=== PATIENT | male | born 1935 | race Caucasian/White ===

== ENCOUNTER 2016-08-03 11:12 | Emergency (ER) | payer MEDICARE ==
[~2016-08-03 11:12] MED LIST: ALPRAZOLAM0.5 MG PO; ASPIRIN 81 LOW81 MG PO; ATORVASTATIN CA40 MG PO; AVAPRO300 MG PO; CALCITRIOL0.25 MCG PO; CALCIUM ACETAT667 MG PO; MELATONIN5 MG PO; METOPROLOL SUCC50 MG PO; OMEPRAZOLE20 MG PO; TRAMADOL HCL50 MG PO; VITAMIN B-121000 MCG PO; VITAMIN D31000 UNI2 PO
--- NOTE | 2016-08-03 13:59 | DIAGNOSTIC IMAGING REPORT ---
PROCEDURE: XR CHEST 1 VIEW INDICATION: Chest pain, initial encounter TECHNIQUE: Portable AP view 12:19 p.m. COMPARISON: Chest x-ray 10/23/2015 FINDINGS: Poor inspiration but lungs are clear. Median sternotomy and CABG. Heart size, mediastinum and pulmonary vessels are normal. Tortuous aorta. Bony thorax is unremarkable. No significant interval change. IMPRESSION: 1. No acute changes 2. CABG
--- NOTE | 2016-08-03 14:38 | ED ORDER SUMMARY ---
..... Patient: LILIA PABLO OrderSheet [facility] VisitID: [id number] [place] [address] 80y, M Registration Date/Time: 08/03/2016 ORDER SHEET Weight: 90.7 kg (stated) Allergies: No Known Drug Allergy GENERAL ORDERS: EKG - ER Stat (11:42 08/03/2016 SBalde R.N. per protocol) (Ack 11:47 Luis Fernando) (12:05 EHassan R.N.) Rapid Influenza Screen (Nasal Pharyngeal) (nasal) Urgent (11:43 08/03/2016 SBalde R.N. per protocol) (Ack 11:47 Luis Fernando) (12:05 EHassan R.N.) Chest 1V Urgent (12:13 08/03/2016 Lorena TINAJERO) (Ack 12:21 Luis Fernando) (12:28 EHassan R.N.) CBC w Diff Urgent (12:13 08/03/2016 Lorena TINAJERO) (Ack 12:21 Luis Fernando) (12:27 EHassan R.N.) CMP Urgent (12:13 08/03/2016 Lorena TINAJERO) (Ack 12:21 Luis Fernnado) (12:27 EHassan R.N.) UA-Culture if indicated Urgent (12:13 08/03/2016 Lorena TINAJERO) (Ack 12:21 Luis Fernando) (15:06 EHassan R.N.) Amylase Urgent (12:13 08/03/2016 Lorena TINAJERO) (Ack 12:21 Luis Fernando) (12:27 EHassan R.N.) Lipase Urgent (12:13 08/03/2016 Lorena TINAJERO) (Ack 12:21 Luis Fernando) (12:27 EHassan R.N.) BNP Urgent (12:13 08/03/2016 Lorena TINAJERO) (Ack 12:21 Luis Fernando) (12:27 EHassan R.N.) CPK Urgent (12:13 08/03/2016 Lorena TINAJERO) (Ack 12:21 Luis Fernando) (12:27 EHassan R.N.) Troponin-I Urgent (12:13 08/03/2016 Lorena TINAJERO) (Ack 12:21 Luis Fernando) (12:27 EHassan R.N.) PCT (Procalcitonin) Urgent (12:08/03/2016 Lorena TINAJERO) (Ack 12:21 Luis Fernando) (12:28 EHassan R.N.) Lactate, Serum Urgent (12:08/03/2016 Lorena TINAJERO) (Ack 12:[facility] (12:37 EHassan R.N.) Anatomy And Physiology Instructor (Continuous) (12:08/03/2016 Lorena TINAJERO) (12:21 MWinterer R.N.) (Ack 12:21 [facility] Oxygen (2 L/min) (NC) (12:08/03/2016 Lorena TINAJERO) (12:21 MWinterer R.N.) (Ack 12:21 [facility] Pulse oximeter (12:08/03/2016 Lorena TINAJERO) (12:21 MWinterer R.N.) (Ack 12:21 [facility]) EKG - ER Stat (12:08/03/2016 Lorena TINAJERO) (Cancelled: Duplicate Order12:21 LTapper) (Cancelled: Other12:21 MWinterer R.N.) (Ack 12:21 [facility]) MEDICATION ORDERS: IV FLUIDS: IV Saline Lock (12:08/03/2016 Lorena TINAJERO) (12:28 EHassadurga R.N.) ORDER SHEET NOTES: [Electronically signed by Jordyn Rodriguez R.N. (15:08/03/2016)] [Electronically signed by Bakari Rolon MD (10:03 08/07/2016)] [Electronically locked/signed by Jordyn Rodriguez R.N. (15:08/03/2016)]
--- NOTE | 2016-08-03 14:38 | ED ORDER SUMMARY ---
..... Patient: LILIA PABLO OrderSheet [facility] VisitID: [id number] [place] [address] 80y, M Registration Date/Time: 08/03/2016 ORDER SHEET Weight: 90.7 kg (stated) Allergies: No Known Drug Allergy GENERAL ORDERS: EKG - ER Stat (11:42 08/03/2016 SBalde R.N. per protocol) (Ack 11:47 Luis Fernando) (12:05 EHassan R.N.) Rapid Influenza Screen (Nasal Pharyngeal) (nasal) Urgent (11:43 08/03/2016 SBalde R.N. per protocol) (Ack 11:47 Luis Fernando) (12:05 EHassan R.N.) Chest 1V Urgent (12:13 08/03/2016 Lorena TINAJERO) (Ack 12:21 Luis Fernando) (12:28 EHassan R.N.) CBC w Diff Urgent (12:13 08/03/2016 Lorena TINAJERO) (Ack 12:21 Luis Fernando) (12:27 EHassan R.N.) CMP Urgent (12:13 08/03/2016 Lorena TINAJERO) (Ack 12:21 Luis Fernando) (12:27 EHassan R.N.) UA-Culture if indicated Urgent (12:13 08/03/2016 Lorena TINAJERO) (Ack 12:21 Luis Fernando) (15:06 EHassan R.N.) Amylase Urgent (12:13 08/03/2016 Lorena TINAJERO) (Ack 12:21 Luis Fernando) (12:27 EHassan R.N.) Lipase Urgent (12:13 08/03/2016 Lorena TINAJERO) (Ack 12:21 Luis Fernando) (12:27 EHassan R.N.) BNP Urgent (12:13 08/03/2016 Lorena TINAJERO) (Ack 12:21 Luis Fernando) (12:27 EHassan R.N.) CPK Urgent (12:13 08/03/2016 Lorena TINAJERO) (Ack 12:21 Luis Fernando) (12:27 EHassan R.N.) Troponin-I Urgent (12:13 08/03/2016 Lorena TINAJERO) (Ack 12:21 Luis Fernando) (12:27 EHassan R.N.) PCT (Procalcitonin) Urgent (12:08/03/2016 Lorena TINAJERO) (Ack 12:21 Luis Fernando) (12:28 EHassan R.N.) Lactate, Serum Urgent (12:08/03/2016 Lorena TINAJERO) (Ack 12:[facility] (12:37 EHassan R.N.) Region Manager (Continuous) (12:08/03/2016 Lorena TINAJERO) (12:21 MWinterer R.N.) (Ack 12:[facility] Oxygen (2 L/min) (NC) (12:08/03/2016 Lorena TINAJERO) (12:21 MWinterer R.N.) (Ack 12:[facility] Pulse oximeter (12:08/03/2016 Lorena TINAJERO) (12:21 MWinterer R.N.) (Ack 12:21 [facility]) EKG - ER Stat (12:08/03/2016 Lorena TINAJERO) (Cancelled: Duplicate Order12:21 LTapper) (Cancelled: Other12:21 MWinterer R.N.) (Ack 12:21 [facility]) MEDICATION ORDERS: IV FLUIDS: IV Saline Lock (12:08/03/2016 Lorena TINAJERO) (12:28 EHassadurga R.N.) ORDER SHEET NOTES: [Electronically signed by Jordyn Rodriguez R.N. (15:08/03/2016)] [Electronically signed by Bakari Rolon MD (10:03 08/07/2016)] [Electronically locked/signed by Jordyn Rodriguez R.N. (15:08/03/2016)]
--- NOTE | 2016-08-03 14:38 | ED NURSING NOTES ---
Clinical Report - Nurses [facility] [address] [place] [address] 08/03/2016 11:12 Patient: LILIA PABLO TRIAGE Triage time 11:30 Aug 03 2016. Acuity: LEVEL 3. Chief Complaint: BODY ACHES. Alert. No acute distress. --11:40 Meenakshi Benítez R.N. 11:29 08/03/16. BP: 151/70. HR: 54. RR: 18. O2 saturation: 100%. Temp: 97.2 F. Pain level now 0/10. --11:40 Meenakshi Benítez R.N. Weight: 90.7 kg stated. Height/Length: 71 inches Per Patient. BMI: 27.9. --11:28 Meenakshi Benítez R.N. Medications ALPRAZolam Oral 0.5 mg, as needed. Calcium Acetate Oral 667mg/0.25 calcitrol, , 1 daily, 2 three times per week. Ecotrin Oral 81 mg, daily. Metoprolol Succinate ER Oral 50 mg daily. Probiotic Daily Oral, daily. Tramadol HCL Oral 50 mg, as needed (last dose at 3pm). Vit b12 2000 mcg. Vitamin D Oral (Capsule 1000 unit) 1 capsule. --11:36 Meenakshi Benítez R.N. Lunesta Oral (Tablet 2 mg), HS. --11:36 Meenakshi Benítez R.N. Ranitidine HCl Oral 150 mg, as needed. --11:37 Meenakshi Benítez R.N. Claritin Oral 10 mg. --11:37 Meenakshi Benítez R.N. IBX Stool Softner. --11:38 Meenakshi Benítez R.N. Allergies No Known Drug Allergy. --11:36 Meenakshi Benítez R.N. History Arrived by private vehicle. Historian: patient. Accompanied by son. Primary physician (Dr. Zurita). ( Son states his dad has been sleeping alot lately, last 6 days his dad has c/o body aches, shoulder pain. Bowels are ok, urine out put, 2 liters a night per son.). Onset. (6 days). 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 PAST MEDICAL HX: Immunizations: seasonal influenza. SOCIAL HX: Heavy tobacco smoker (cigarette)- 1 pack per day. Alcohol use; consumes liquor. (2-3 drinks a noc). No drug use. No recent travel. No infectious disease exposure. No known contact with a sick individual. FALL RISK ASSESSMENT: Fall risk assessment completed. No fall risk identified. NUTRITIONAL RISK ASSESSMENT: The nutritional risk assessment revealed no deficiencies. FUNCTIONAL ASSESSMENT: Functional assessment: no impairments noted. LEARNING NEEDS ASSESSMENT: The learning needs assessment revealed no barriers. SKIN INTEGRITY ASSESSMENT: Skin integrity risk assessment completed. No skin integrity risk identified. --11:40 Meenakshi Benítez R.N. PROBLEMS: Abdominal Pain. Renal Insufficiency. Renal Failure. Heart Disease. --11:39 Meenkashi Benítez R.N. ADDITIONAL SURGERIES: AAA repair. Angioplasty of blood vessel. Coronary Artery Bypass Graft. Stents. --11:39 Meenakshi Benítez R.N. Interventions ID band on patient. To room. --11:40 Meenakshi Benítez R.N. PHYSICAL ASSESSMENT To room via wheelchair. GENERAL / NEURO / PSYCH: Alert. Oriented X 4. Appears in no acute distress. HEENT: Mucous membranes are pink. RESPIRATORY: Respirations not labored. Chest nontender. Decreased breath sounds in the bases bilaterally; decreased breath sounds in the right lung base posteriorly; decreased breath sounds in the left lung base posteriorly. CVS: Cardiac rhythm: sinus bradycardia. Capillary refill less than 2 seconds. Pulses within normal limits. GI / : Abdomen soft and nontender and normal bowel sounds. SKIN: Skin intact. Skin is warm and dry. --11:55 Jordyn Rodriguez R.N. NURSING PROGRESS NOTES 11:51 08/03/2016 Site #1 started via IV in the right forearm with an 20g angiocath; one attempt. Blood drawn: rainbow set. Labeled in the presence of the patient and sent to the lab. Saline lock flushed with 10 mL saline. --11:56 Jordyn Rodriguez R.N. Cardiac rhythm: sinus bradycardia. The initial plan of care for this patient has been created This plan of care was discussed with the patient and family. Pulse oximeter applied. Patient ID band checked for patient name, birthdate and medical record number: patient confirmed. Blood samples drawn from the right forearm by nurse per protocol ; labeled in presence of the patient and sent to lab: rainbow set. Patient gowned. Reassurance given. Patient ID band checked for patient name, birthdate and medical record number: patient confirmed. Flu swab obtained by RN via nasal swab. Labeled in the presence of the patient and sent to lab. ( Pt's son wanted us to know dad has had a lump like in his upper right epigastric area, which "hurts if I rubbed it down it feels better and goes down".). Patient identifiers checked. Call light placed in reach. Side rails up x 2. Bed placed in lowest position. Brakes of bed on. Brakes of chair on. --12:05 Jordyn Rodriguez R.N. 11:45 08/03/16. BP: 139/68 (regular adult cuff) taken on the left arm, via an automated monitor, while lying. HR: 53. RR: 12. O2 saturation: 100%. Pain level now: 0/10. --12:05 Jordyn Rodriguez R.N. EKG time: (11:40). EKG was performed by a tech and shown to the ED physician. --12:16 David Rivera Cardiac rhythm: sinus bradycardia. --12:57 Jordyn Rodriguez R.N. 12:45 08/03/16. BP: 129/61 (regular adult cuff) taken on the left arm, via an automated monitor, while lying. HR: 55 (regular and bradycardic). RR: 15. O2 saturation: 99% on room air. Pain level now: 0/10. --12:57 Jordyn Rodriguez R.N. 14:23 08/03/16. BP: 139/74. HR: 57. RR: 18. O2 saturation: 55%. --14:23 Meenakshi Benítez R.N. DISPOSITION / DISCHARGE 14:58 08/03/2016 Site #1 removed upon discharge. Catheter intact. Manual pressure and bandaid applied. --15:03 Jordyn Rodriguez R.N. Cardiac rhythm: normal sinus rhythm. Departure time: 1505 PM. Condition at departure: improved and stable. The goals identified in the patient's plan of care were met. No learning barriers present. Discharge instructions provided and reviewed with the patient and family. Reviewed warnings. Reviewed medication(s). He has no diet restrictions. Reviewed need to stop smoking. Activity restrictions (no driving and rest) reviewed. Work note given. Patient and family verbalized understanding. Written instructions provided in [place]. The patient was discharged by the physician. He was discharged home and accompanied by family. He left the Emergency Department in a wheelchair and via private vehicle. Family member driving. FALL RISK ASSESSMENT: Fall risk assessment completed. No fall risk identified. RAKESH COMA SCORE: [place] Coma Scale: 15- eyes open spontaneously (4); best verbal response- oriented x 4 (5); best motor response- obeys commands (6). --15:05 Jordyn Rodriguez R.N. 15:00 08/03/16. BP: 132/57 (regular adult cuff) taken on the left arm, via an automated monitor, while sitting. HR: 76 (regular and normal rate). RR: 15. O2 saturation: 97% on room air. Temp: 97.2 F (oral). Pain level now: 0/10. --15:05 Jordyn Rodriguez R.N. Locked/Released at 08/03/2016 15:07 by Jordyn Rodriguez R.N.
--- NOTE | 2016-08-03 14:38 | ED CLINICAL REPORT ---
Clinical Report - Physicians/Mid Levels [facility] [address] [place] [address] 08/03/2016 11:12 Patient: LILIA PABLO Time Seen: 12:13. Arrived- By private vehicle. Historian- patient and son. HISTORY OF PRESENT ILLNESS Chief Complaint: sleeping 20 plus hours each day. This started for about 4 days and is still present. It was gradual in onset and has been constant. The patient has had fatigue and hypersomnia. (the patient and his son have been concerned because he has been sleepingmost of the time over the past several days. His son says that he takes medications for anxiety and also for insomnia.). REVIEW OF SYSTEMS No chills, fever, sweats, calf pain or chest pain. No cough, difficulty breathing, pedal edema, palpitations or abdominal pain. No constipation, diarrhea, nausea, vomiting or urinary problems. All systems otherwise negative, except as recorded above. PAST HISTORY Problems: Abdominal Pain. Heart Disease. Renal Failure. Additional Surgeries: AAA repair. Angioplasty of blood vessel. Coronary Artery Bypass Graft. Stents. Medications: IBX Stool Softner. Claritin Oral 10 mg. Ranitidine HCl Oral 150 mg, as needed. Lunesta Oral (Tablet 2 mg), HS. ALPRAZolam Oral 0.5 mg, as needed. Calcium Acetate Oral 667mg/0.25 calcitrol, , 1 daily, 2 three times per week. Ecotrin Oral 81 mg, daily. Metoprolol Succinate ER Oral 50 mg daily. Probiotic Daily Oral, daily. Tramadol HCL Oral 50 mg, as needed (last dose at 3pm). Vit b12 2000 mcg. Vitamin D Oral (Capsule 1000 unit) 1 capsule. Allergies: No Known Drug Allergy. SOCIAL HISTORY Current every day heavy tobacco smoker (cigarette)- 1 pack per day. Regular heavy alcohol use; consumes three liquor daily. FAMILY HISTORY Denies family medical history. PHYSICAL EXAM Appearance: Alert. Eyes: Pupils equal, round and reactive to light. ENT: Pharynx normal. Neck: Neck supple. No JVD. CVS: Normal heart rate and rhythm. Respiratory: No respiratory distress. Breath sounds normal. Abdomen: No visible injury. Soft and nontender. Bowel sounds normal. No organomegaly. No mass. Back: Normal inspection. Skin: Skin warm and dry. Extremities: Extremities exhibit normal ROM. No calf tenderness. No lower extremity edema. Neuro: Oriented X 3. No motor deficit. No sensory deficit. LABS, X-RAYS, AND EKG EKG: Rate: 54. First-degree atrioventricular block. Q waves in lead III, aVF, V1 and V2. Left axis deviation. Non-specific ST segment / T wave abnormalities. EKG unchanged when compared with prior EKG. (without significant changes from studies performed on the and October 2015). The study has been independently viewed by me. Chest X-ray: (IMPRESSION: 1. No acute changes 2. CABG). The X-rays were interpreted by the radiologist and contemporaneously by me. Laboratory Tests: UA-Culture if indicated: (KATHRYN: 08/03/2016 13:17) ( [facility] 13[facility]45[facility] Final results Test Result Flag Units (Reference) URINE COLOR YELLOW URINE APPEARANCE SL CLOUDY URINE GLUCOSE NEGATIVE (NEGATIVE) URINE BILIRUBIN NEGATIVE (NEGATIVE) URINE KETONE NEGATIVE (NEGATIVE) URINE SPECIFIC GRAVITY 1.015 (1.010-1.030) URINE PH 6.5 (5.0-8.0) URINE PROTEIN NEGATIVE (NEGATIVE) URINE UROBILINOGEN 0.2 EU/dL (0.2-1.0) URINE NITRITE NEGATIVE (NEGATIVE) URINE BLOOD NEGATIVE (NEGATIVE) URINE LEUK ESTERASE NEGATIVE (NEGATIVE) URINE RBC NONE SEEN rbc/hpf (0-1) URINE WBC 1-3 wbc/hpf (0-1) URINE EPITHELIAL CELLS 0-1 EPI/hpf (0-5) URINE BACTERIA TRACE (<1+) (NONE SEEN) URINE COMMENT CULT NOT INDICATED 1+ AMORPHOUS URATESURINE CULTURES ARE SET-UP BASED ON THE FOLLOWING CRITERIA:POSITIVE NITRITEPOSITIVE LEUKOCYTE ESTERASEGREATER THAN 10 WHITE BLOOD CELLSMODERATE (2+) OR GREATER BACTERIA CBC w Diff: (KATHRYN: 08/03/2016 11:50) ( [facility] 08/03/2016 12:28) Final results Test Result Flag Units (Reference) WHITE BLOOD COUNT 7.1 K/uL (4.5-11.5) RED BLOOD COUNT 4.56 M/uL (4.50-5.90) HEMOGLOBIN 13.4 L gm/dL (13.5-17.5) HEMATOCRIT 41.3 % (41.0-53.0) MEAN CELL VOLUME 91 fL (80-100) MEAN CORPUSCULAR HGB 29 pg (26-34) MEAN CORPUSCULAR HGB CONC 32 g/dL (31-37) RED CELL DISTRIBUTION WIDTH 14.0 % (11.6-14.8) PLATELET COUNT 182 K/uL (150-400) NEUTROPHIL % 64.7 % (50-75) LYMPH % 23.8 L % (25-40) MONO % 7.3 % (3-14) EOSINOPHIL % 3.7 % (0-4) BASOPHIL % 0.5 % (0-2) BNP: (KATHRYN: 08/03/2016 11:50) ( [facility] 08/03/2016 12:51) Final results Test Result Flag Units (Reference) B-TYPE NATRIURETIC PEPTIDE 357 H pg/ml (5-100) Lactate, Serum: (KATHRYN: 08/03/2016 12:35) ( [facility] 08/03/2016 13:35) Final results Test Result Flag Units (Reference) LACTIC ACID 1.3 mmol/L (0.4-2.0) [id number]: (KATHRYN: 08/03/2016 11:50) ( [facility] 08/03/2016 13:24) Final results Test Result Flag Units (Reference) PROCALCITONIN <0.5 ng/mL (0-0.5) PCT Concentration: Interpretation : Risk/option for action PCT <=0.5 ng/mL : Systemic : Low risk forinfection(sepsis): progression to severeis not likely. : systemic infection.Local bacterial : CAUTION-PCT levelsinfection is : below 0.5 ng/mL do notpossible. : exclude an infection,because localizedinfections (withoutsystemic signs) may beassociated with suchlow levels. If PCT ismeasured very earlyafter a bacterialchallenge (usually <6hours), these valuesmay still be low. Inthis case PCT shouldbe re-assessed 6-24hours later. PCT >0.5 and : Systemic infection: Moderate risk for<= 2 ng/mL : (sepsis) is : progression to severepossible, but : systemic infection.other conditions : The patient should beare known to : closely monitoredelevate PCT. : both clinically andby re-assessing PCTwithin 6-24 hours. PCT > 2 ng/mL : Systemic infection: High risk for(sepsis) is likely: progression to severeunless other : systemic infection.causes are known. : PCT >= 10 ng/mL : Important systemic: High likelihood ofinflammatory : severe sepsis orresponse, almost : septic shock.exclusively due to:severe bacterial :sepsis or septic :shock. : CMP: (KATHRYN: 08/03/2016 11:50) ( [facility]sg[facility]cv[facility] 08/03/2016 13:28) Final results Test Result Flag Units (Reference) GLUCOSE 98 mg/dL (70-110) BUN 36 H mg/dL (7-18) CREATININE 2.2 H mg/dL (0.6-1.3) Estimated GFR 30.69 mL/min Estimated GFR- 37.19 mL/min Note: Persistent reduction over 3 months in eGFR<60 mL/min/1.73 m2 defines CKD. Patients with eGFR values>=60 mL/min/1.73 m2 may also have CKD if evidence ofpersistent proteinuria. Additional information may be foundat www.kidney.org. SODIUM 139 mmol/L (136-145) POTASSIUM 5.1 mmol/L (3.5-5.1) CHLORIDE 102 mmol/L (98-107) CARBON DIOXIDE 30 mmol/L (21-32) CALCIUM 9.6 mg/dL (8.5-10.1) TOTAL PROTEIN 7.0 g/dL (6.4-8.2) ALBUMIN 3.6 g/dL (3.3-5.0) BILIRUBIN, TOTAL 0.3 mg/dL (0.0-1.0) ALKALINE PHOSPHATASE 58 U/L (46-116) AST (SGOT) 15 U/L (15-37) ALT (SGPT) 18 U/L (12-78) LIPASE 168 U/L (73-393) AMYLASE 32 U/L (25-115) CPK 26 U/L (24-260) TROPONIN I <0.05 ng/mL (0.00-1.5) TROPONIN REFERENCE RANGE:<0.1 NEGATIVE0.1-1.5 INDETERMINANT>1.5 POSITIVE Rapid Influenza Screen: (KATHRYN: 08/03/2016 11:36) ( MsgRcvd 08/03/2016 12:11) Final results SPECIMEN DESCRIPTION: NASAL Test Result Flag Units (Reference) RAPID INFLUENZA SCREEN DATE: 08/03/16 INFLUENZA A: NEGATIVE SCREEN FOR INFLUENZA A INFLUENZA B: NEGATIVE SCREEN FOR INFLUENZA B . PROGRESS AND PROCEDURES Course of Care: Patient is stable. Patient/family counseled. Old medical records reviewed. Disposition: Discharged. Condition: stable. CLINICAL IMPRESSION Chronic congestive heart failure Adverse drug reaction involving an antianxiety drug and a benzodiazepine. (Lunesta). Renal insufficiency. INSTRUCTIONS Rest. Warnings: Further evaluation is necessary. GENERAL WARNINGS: Return or contact your physician immediately if your condition worsens or changes unexpectedly, if not improving as expected, or if other problems arise. Your Current Medications: STOP TAKING THE FOLLOWING MEDICATIONS: ALPRAZolam Oral : 0.5 mg, prn. Lunesta Oral : Tablet 2 mg, HS. Tramadol HCL Oral : 50 mg, prn, last dose at 3pm. CONTINUE TAKING THE FOLLOWING MEDICATIONS: Calcium Acetate Oral : 667mg/0.25 calcitrol, 1 daily, 2 three times per week. Claritin Oral : 10 mg. Ecotrin Oral : 81 mg daily. IBX Stool Softner*. Metoprolol Succinate ER Oral : 50 mg daily. Probiotic Daily Oral : daily. Ranitidine HCl Oral : 150 mg, prn. Vit b12* : 2000 mcg. Vitamin D Oral : Capsule 1000 unit, 1 capsule. Follow-up: Follow up with your doctor Friday in two days. Call for an appointment. Understanding of the discharge instructions verbalized by patient and family. (Electronically signed by Bakari Rolon MD 08/07/2016 10:03)
--- NOTE | 2016-08-07 10:03 | ED DISCHARGE INSTRUCTIONS ---
Patient: LILIA PABLO General Instructions [facility] VisitID: [id number] [place] [address] 80y, M Registration Date/Time: 08/03/2016 Chronic congestive heart failure Adverse drug reaction involving an antianxiety drug and a benzodiazepine. (Lunesta). Renal insufficiency. INSTRUCTIONS Rest. Warnings: Further evaluation is necessary. GENERAL WARNINGS: Return or contact your physician immediately if your condition worsens or changes unexpectedly, if not improving as expected, or if other problems arise. Your Current Medications: STOP TAKING THE FOLLOWING MEDICATIONS: ALPRAZolam Oral : 0.5 mg, prn. Lunesta Oral : Tablet 2 mg, HS. Tramadol HCL Oral : 50 mg, prn, last dose at 3pm. CONTINUE TAKING THE FOLLOWING MEDICATIONS: Calcium Acetate Oral : 667mg/0.25 calcitrol, 1 daily, 2 three times per week. Claritin Oral : 10 mg. Ecotrin Oral : 81 mg daily. IBX Stool Softner*. Metoprolol Succinate ER Oral : 50 mg daily. Probiotic Daily Oral : daily. Ranitidine HCl Oral : 150 mg, prn. Vit b12* : 2000 mcg. Vitamin D Oral : Capsule 1000 unit, 1 capsule. Follow-up: Follow up with your doctor Friday in two days. Call for an appointment. Understanding of the discharge instructions verbalized by patient and family. ADDITIONAL INFORMATION Renal Insufficiency The role of the kidneys is to remove waste products and excess water from the body. When the kidneys do not function normally, waste products build up in the blood.The early stage of this process is called renal insufficiency . If renal insufficiency worsens it can lead to chronic renal failure. This allows excess water, waste and toxic substances to build up in the body. This can become a threat to life, requiring dialysis or a kidney transplant to stay alive. Diabetes is the leading causes of renal insufficiency. Other causes include high blood pressure, hardening of the arteries, lupus, inflammation of the blood vessels (vasculitis), prior viral and bacterial infections, and others. Certain fero-aty-fsgbqir pain medicines can cause renal failure when taken often over a long period of time. These include aspirin, ibuprofen (Advil, Motrin) and related anti-inflammatory medicines. Home Care: If you have diabetes, talk to your doctor about the quality of your blood sugar control.Ask about any changes needed to your diet or medicines. If you have high blood pressure: Take your blood pressure medicine. Take up a regular exercise program that you enjoy.Check with your doctor to be sure your planned exercise program is right for you. Reduce your salt (sodium) intake.Your doctor can tell you how much salt per day is safe for you. If you are overweight, talk to your doctor about a weight loss plan. If you smoke, you must quit.Smoking worsens kidney disease.Talk to your doctor about ways to help you quit.For more information, visit the following links: www.smokefree.gov/pubs/clearing_the_air.pdf www.smokefree.gov www.[employer].com Talk to your doctor about any dietary restrictions advised. In general, it is advisable to limit protein, salt, potassium and phosphorus.Avoid excess fluids. Do not add salt at the table and avoid salty foods.A calcium supplement may be prescribed to protect your bones from osteoporosis. Avoid the following over the counter medicines, or consult your doctor before using: Aspirin and anti-inflammatory drugs such as ibuprofen (Advil, Motrin), naprosyn (Aleve); [Short term use of acetaminophen (Tylenol) for fever or pain is okay.] Laxatives and antacids containing magnesium or aluminum (Mylanta, Maalox) Avoid Fleet or phosphosoda enemas which contain phosphorus Certain stomach acid-blocking medicine such as cimetidine (Tagamet), ranitidine (Zantac) Decongestants containing pseudoephedrine (such as some forms of Sudafed or Actifed) Herbal supplements Follow Up with your doctor or as advised by our staff. Contact one of the following for more information. [phone] www.aakp.org National Kidney Foundation www.kidney.org Return Promptly or contact your doctor if any of the following occurs: Nausea or vomiting Severe weakness, dizziness, fainting, drowsiness or confusion Chest pain or shortness of breath Unexpected weight gain or swelling in the legs, ankles or around the eyes Heart beating fast, slow or irregularly Decrease or loss in urine output Heart Failure (Left Or Right Sided) The heart is a large muscle that pumps blood throughout the body. Blood carries oxygen to all the organs, muscles, and skin of your body. After the body takes the oxygen out of the blood, the blood returns to the heart. The right side of the heart collects that blood and pumps it to the lungs to receive fresh oxygen. This oxygen-rich blood from the lungs then returns to the left side of the heart where it is pumped back out to the rest of the body, starting the process all over. Heart Failure (HF) occurs when the heart muscle is weakened. This affects the pumping action of the heart. When the right side of the heart is weakened, it cant handle the blood it is receiving from the rest of the body. This blood returns to the heart through veins. When too much pressure builds up in the veins fluid leaks out into the tissues. [place] then causes that fluid to spread to those parts of the body that are the lowest. Therefore, one of the first symptoms of HF include swelling in the feet and ankles. If the condition worsens, the swelling can even go up past the knees. When the left side of the heart is weakened, it cant handle the blood it is receiving from the lungs. Pressure then builds up in the veins of the lungs, causing fluid to leakinto the lung tissues. This may be referred to as congestive heart failure.This causes you to feel short of breath, weak, or dizzy. These symptoms are often worse with exertion, such as climbing stairs or walking up hills. Lying flat is uncomfortable and can make your breathing worse. This may make sleeping difficult and force you to useextra pillows to sleep well. This condition may not only affect the right side of the heart or only the left side. While it may have started on one side, it often affects both sides. Causes of heart failure Coronary artery disease Prior heart attack (also known as acute myocardial infarction, or AMI) High blood pressure Damaged heart valve Diabetes Obesity Cigarette smoking Alcohol abuse Treatment Heart failure is a chronic condition. There is no cure. The purpose of medical treatment is to improve the pumping action of the heart, and remove excess water from the body. A number of medications can help achieve this goal,improvesymptoms and prevent the heart from becoming weaker. Another major goal is to better treat the caues of heart failure, such as diabetes, high blood pressure, and your lifestyle. Home care Check your weight every day. A sudden increase in weight gain could mean worsening heart failure. Use the same scale every day Weigh yourself at the same time every day Make sure the scale is on the floor, not on a rug Keep a record of your weight every day, so your doctor can see it. If you are not given a log sheet for this, keep a separate journal for this purpose. Reduce your salt (sodium) intake. Avoid high-salt foods (olives, pickles, smoked meats, salted potato chips, etc.). Do not add salt to your food at the table and use only small amounts of salt when cooking. Follow your doctors recommendations about how much fluid intake is safe. Stop smoking. Reduce alcohol use. Lose weight if you are overweight. The excess weight adds a lot of stress on the workload of the heart. Stay active. Talk to your doctor about an exercise program that is safe for your heart. Keep your feet elevated to reduce swelling. Ask your doctor about support hose as a preventive treatment for daytime leg swelling. Besides taking your medicine as instructed, an important part of treatment includes lifestyle changes such as diet, physical activity, stopping smoking, and weight control. Improve your diet. Often in the hospital, people are given a "heart healthy diet." This includes more fresh foods, lower fat, less processed foots, and lower salt. Follow-up care Follow up with your doctor as directed by our staff. Make sure to keep any appointments that were made for you as this can help better control heart failure. If an X-ray was done, you will be notified of any new findings that may affect your care. Call 911 Call 911 if you: Become severely short of breath Feel lightheaded, or feel like you might pass out or faint Have chest pain or discomfort that is different than usual, the medicines your doctor told you to use for this do not help, or the pain lasts longer than 10 to 15 minutes Suddendly develop a rapid heart rate When to seek medical care Get prompt medical attention if you have any of the following signs of worsening heart failure: Sudden weight gain (3or more pounds in one day or5or more pounds in one week) Trouble breathing not related to being active New or increased swelling of your legs or ankles Swelling or pain in your abdomen Breathing trouble at night (waking up short of breath, needing more pillows to breathe) Frequent coughing that doesnt go away Feeling much more tired than usual You have been given the following additional information: Renal Insufficiency Heart Failure, General Rest. (Electronically signed by Bakari Rolon MD 08/07/2016 10:03)
--- NOTE | 2016-08-07 10:03 | ED MED RECONCILIATION SUMMARY ---
Patient: LILIA PABLO Medication Reconciliation Report [facility] VisitID: [id number] [address] [place] [address] 80y, M Registration Date/Time: 08/03/2016 Weight: 90.7 kg Height/Length: 71 in. BMI: 27.9 ALLERGIES: No Known Drug Allergy The patient's Home Medications are listed below: STOP TAKING THE FOLLOWING MEDICATIONS: ALPRAZolam Oral 0.5 mg Lunesta Oral (2 mg), HS Tramadol HCL Oral 50 mg, last dose at 3pm CONTINUE TAKING THE FOLLOWING MEDICATIONS: Calcium Acetate Oral 667mg/0.25 calcitrol, 1 daily, 2 three times per week Claritin Oral 10 mg Ecotrin Oral 81 mg, daily IBX Stool Softner Metoprolol Succinate ER Oral 50 mg daily Probiotic Daily Oral, daily Ranitidine HCl Oral 150 mg Vit b12 2000 mcg Vitamin D Oral (1000 unit) 1 capsule The source(s) of the original Home Medication information: Not obtained. The following Medications were given to the patient in the Emergency Department: None. The following Medications were prescribed to the patient: None.
--- NOTE | 2016-08-07 10:03 | ED MED RECONCILIATION SUMMARY ---
Patient: LILIA PABLO Medication Reconciliation Report [facility] VisitID: [id number] [address] [place] [address] 80y, M Registration Date/Time: 08/03/2016 Weight: 90.7 kg Height/Length: 71 in. BMI: 27.9 ALLERGIES: No Known Drug Allergy The patient's Home Medications are listed below: STOP TAKING THE FOLLOWING MEDICATIONS: ALPRAZolam Oral 0.5 mg Lunesta Oral (2 mg), HS Tramadol HCL Oral 50 mg, last dose at 3pm CONTINUE TAKING THE FOLLOWING MEDICATIONS: Calcium Acetate Oral 667mg/0.25 calcitrol, 1 daily, 2 three times per week Claritin Oral 10 mg Ecotrin Oral 81 mg, daily IBX Stool Softner Metoprolol Succinate ER Oral 50 mg daily Probiotic Daily Oral, daily Ranitidine HCl Oral 150 mg Vit b12 2000 mcg Vitamin D Oral (1000 unit) 1 capsule The source(s) of the original Home Medication information: Not obtained. The following Medications were given to the patient in the Emergency Department: None. The following Medications were prescribed to the patient: None.
--- NOTE | 2016-08-07 10:03 | ED MAR SUMMARY ---
..... Medication Administration Record [facility] [address] [place], [place] [id number] Patient: LILIA PABLO Visit ID: [id number] 80y, M Weight: 90.7 kg Height/Length: 71 in BMI: 27.9 ALLERGIES: No Known Drug Allergy
--- NOTE | 2016-08-07 10:03 | ED MAR SUMMARY ---
..... Medication Administration Record [facility] [address] [place], [place] [id number] Patient: LILIA APBLO Visit ID: [id number] 80y, M Weight: 90.7 kg Height/Length: 71 in BMI: 27.9 ALLERGIES: No Known Drug Allergy
== END 2016-08-03 15:05 | disposition home or self-care (01) ==
LOC: ED SRH 11:12
DX: R40.0 Somnolence (principal); T88.7XXA Unspecified adverse effect of drug or medicament, initial encounter; T42.6X5A Adverse effect of other antiepileptic and sedative-hypnotic drugs, initial encounter; I50.9 Heart failure, unspecified; N28.9 Disorder of kidney and ureter, unspecified; F17.210 Nicotine dependence, cigarettes, uncomplicated; Z79.899 Other long term (current) drug therapy
CPT/HCPCS: 90004; 90100; 90616; 91320; 91400; 92031; 92235; 92530; 92610; 93004; 95059

== ENCOUNTER 2016-11-16 14:53 | Emergency (ER) | payer MEDICARE ==
--- NOTE | 2016-11-16 16:51 | ED ORDER SUMMARY ---
..... Patient: LILIA PABLO OrderSheet [facility] VisitID: [id number] [address] [place] [address] 81y, M Registration Date/Time: 11/16/2016 ORDER SHEET Weight: 83.9 kg Allergies: Flagyl GENERAL ORDERS: CBC w Diff Urgent (15:14 11/16/2016 HBivens A.R.N.P.) (Ack 15:15 TBergley) (16:03 TBergley) CMP Urgent (15:14 11/16/2016 HBivens A.R.N.P.) (Ack 15:15 TBergley) (16:03 TBergley) UA-Culture if indicated Urgent (15:14 11/16/2016 HBivens A.R.N.P.) (Ack 15:15 TBergley) (15:21 [place] R.N.) Bladder Scan (15:14 11/16/2016 HBivens A.R.N.P.) (Ack 15:15 TBergley) (15:38 TBergley) MEDICATION ORDERS: IV FLUIDS: ORDER SHEET NOTES: [Electronically signed by Cruz Gan R.N. (18:10 11/16/2016)] [Electronically signed by Yadi Vicente.R.N.P. (18:41 11/16/2016)] [Electronically locked/signed by Cruz Gan R.N. (18:10 11/16/2016)]
--- NOTE | 2016-11-16 16:51 | ED NURSING NOTES ---
Clinical Report - Nurses [facility] [address] [place] [address] 11/16/2016 14:53 [id number] TRI[facility] Triage time 15:00 Nov 16 2016. Acuity: LEVEL 3. Chief Complaint: URINARY RETENTION. Alert. SEPSIS SCREEN: Sepsis Screen. Negative (no infection suspected/documented). RAKESH COMA SCORE: [place] Coma Scale: 15- eyes open spontaneously (4); best verbal response- oriented x 4 (5); best motor response- obeys commands (6). --15:20 Cruz Gan R.N. 15:00 11/16/16. BP: 130/64. HR: 49. RR: 18. O2 saturation: 97% on room air. Temp: 98.2 F (oral). Pain level now: 0/10. --15:20 Cruz Gan R.N. 15:21 11/16/16. HR: 58. Additional comments: HR recheck. --15:21 Cruz Gan R.N. Weight: 83.9 kg. Height/Length: 70 inches Per Patient. BMI: 26.5. --15:15 Cruz Gan R.N. Medications ALPRAZolam Oral 0.5 mg, as needed. Calcium Acetate Oral 667mg/0.25 calcitrol, , 1 daily, 2 three times per week. Claritin Oral 10 mg. Ecotrin Oral 81 mg, daily. IBX Stool Softner. Lunesta Oral (Tablet 2 mg), HS. Probiotic Daily Oral, daily. Vit b12 2000 mcg. Vitamin D Oral (Capsule 1000 unit) 1 capsule. --15:10 Cruz Gan R.N. Atenolol Oral 25 mg, daily. --15:11 Cruz Gan R.N. PriLOSEC Oral 20 mg, 2x a day. --15:11 Cruz Gan R.N. Calcitriol Oral (Capsule 0.25 mcg) 1 capsule-2 tabs every other day,one daily. --15:12 Cruz Gan R.N. Medication/allergy information source: the patient and patient's family. --15:20 Cruz Gan R.N. Allergies Flagyl. Definite Moderate (turned his mouth black) --15:10 Cruz Gan R.N. History Arrived by private vehicle. Historian: son and patient. Accompanied by son. Primary physician (Gonsalo Zurita). ( Oliguria according to son.). This started last night. He has been unable to void. Treatment GAUGE MAKER: None. PAST MEDICAL HX: Immunizations: status is unknown. SOCIAL HX: Heavy tobacco smoker (cigarette)- 1 pack per day. Alcohol use; consumes one liquor daily. No drug use. No infectious disease exposure. ABUSE ASSESSMENT: No report of abuse. FALL RISK ASSESSMENT: Fall risk assessment completed. No fall risk identified. NUTRITIONAL RISK ASSESSMENT: The nutritional risk assessment revealed no deficiencies. FUNCTIONAL ASSESSMENT: Functional assessment: no impairments noted. LEARNING NEEDS ASSESSMENT: The learning needs assessment revealed no barriers. SKIN INTEGRITY ASSESSMENT: Skin integrity risk assessment completed. No skin integrity risk identified. --15:20 Cruz Gan R.N. PROBLEMS: Congestive Heart Failure. Adverse Drug Reaction. Abdominal Pain. Renal Insufficiency. Renal Failure. Heart Disease. --15:08 Cruz Gan R.N. ADDITIONAL SURGERIES: AAA repair. Angioplasty of blood vessel. Coronary Artery Bypass Graft. Stents. --15:08 Cruz Gan R.N. Interventions ID and allergy band on patient. To treatment room. --15:20 Cruz Gan R.N. PHYSICAL ASSESSMENT To room via wheelchair. GENERAL / NEURO / PSYCH: Alert. Oriented X 4. Appears in no acute distress. HEENT: Mucous membranes are pink. RESPIRATORY: Respirations not labored. CVS: Normal heart rate and rhythm. GI / : Abdomen soft. SKIN: Skin is warm and dry. --15:20 Cruz Gan R.N. NURSING PROGRESS NOTES 15:11/16/16. Reassurance given. Patient identifiers checked. Call light placed in reach. Side rails up x 1. Bed placed in lowest position. Brakes of bed on. Patient ready for evaluation- chart flagged and ED physician notified. --15:27 Cruz Gan R.N. 15:23 11/16/16. ( Pt voided 325cc/urinal). --15:29 Cruz Gan R.N. Patient ID band checked for patient name, birthdate and medical record number: patient confirmed. Instructions provided to collect clean catch urine and patient verbalized understanding. Clean catch urine collected with return of yellow-colored clear urine; odor is normal; sample sent to lab for urinalysis and culture. Specimen labeled in the presence of the patient. --15:29 Cruz Gan R.N. 15:36 11/16/16. ( Bladder scanned showed 24ml.). --15:36 Quynh Henderson 16:10 11/16/16. BP: 134/55. HR: 61. RR: 16. O2 saturation: 95% on room air. --16:11 Cruz Gan R.N. 16:55 11/16/16. ( Pt voided 200cc). --18:09 Cruz Gan R.N. DISPOSITION / DISCHARGE 17:00 11/16/16. BP: 134/55. HR: 58. RR: 16. O2 saturation: 99% on room air. Temp: 98.5 F. Pain level now: 0/10. --18:04 Cruz Gan R.N. Departure time: 1709. --18:06 Cruz Gan R.N. 17:09. Condition at departure: improved. No learning barriers present. Discharge instructions provided and reviewed with the patient. Reviewed medication(s) (contiue your usually prescribed medications). Reviewed referral to family practice for followup. Patient verbalized understanding. Written instructions provided in Portuguese. The patient was discharged by the nurse practitioner. He was discharged home and accompanied by family. He left the Emergency Department ambulatory and via private vehicle. Family member driving. --18:08 Cruz Gan R.N. Locked/Released at 11/16/2016 18:10 by Cruz Gan R.N.
--- NOTE | 2016-11-16 16:51 | ED CLINICAL REPORT ---
Clinical Report - Physicians/Mid Levels [facility] [address] [place] [address] 11/16/2016 14:53 Patient: LILIA PABLO Time Seen: 15:03; initial patient contact, initial documentation, patient care assumed. Arrived- By private vehicle. Historian- patient and son. HISTORY OF PRESENT ILLNESS Chief Complaint: URINARY RETENTION. This started today and is still present. The problem is described as moderate. No penile discharge, discomfort with urination, urinary frequency, testicular pain or urgency of urination. No flank pain or Phillips catheter problem. He has been unable to void. Not voiding only small amounts. Sexual history is noncontributory. Similar symptoms previously: None. Recent medical care: Not recently seen/assessed. REVIEW OF SYSTEMS No fever, flank pain, hematuria, abdominal pain or vomiting. No diarrhea. All systems otherwise negative, except as recorded above. PAST HISTORY See nurses notes. ( IMPRESSION: 1. Negative chest. Electronically Final signed by:Saul Mcqueen MD 11/16/2016 3:10:08 PM Technologist: JHONNY). SOCIAL HISTORY Heavy tobacco smoker. Occasional alcohol use. No drug use. No recent travel. Is a local resident. FAMILY HISTORY Negative. ADDITIONAL NOTES The nursing notes have been reviewed with agreement regarding the chief complaint, HPI, ROS, PMH and patient medications and allergies. PHYSICAL EXAM Vital Signs: 11/16/2016 15:00 BP: 130/64. HR: 49. RR: 18. O2 saturation: 97%. Temp: 98.2 F. Pain level now: 0/10. Have been reviewed as abnormal and appear to be correct. Blood pressure normal. Bradycardic. Respiratory rate normal. Temperature normal. Oxygen saturation normal. Appearance: Alert. Oriented X3. No acute distress. ENT: Normal external inspection. Pharynx normal. Neck: Neck supple. CVS: Heart sounds normal. Respiratory: No respiratory distress. Breath sounds normal. Abdomen: Soft and nontender. Bowel sounds normal. No organomegaly. No mass. Back: Normal external inspection. Skin: Skin warm and dry. Normal skin color. No rash. Normal skin turgor. Extremities: Extremities exhibit normal ROM. No lower extremity edema. Neuro: Oriented X 3. No motor deficit. No sensory deficit. LABS, X-RAYS, AND EKG Laboratory Tests: UA-Culture if indicated: (KATHRYN: 11/16/2016 15:15) ( [facility] 11/16/2016 16:55) Final results Test Result Flag Units (Reference) URINE COLOR YELLOW URINE APPEARANCE CLEAR URINE GLUCOSE NEGATIVE (NEGATIVE) URINE BILIRUBIN NEGATIVE (NEGATIVE) URINE KETONE NEGATIVE (NEGATIVE) URINE SPECIFIC GRAVITY <= 1.005 L (1.010-1.030) URINE PH 5.5 (5.0-8.0) URINE PROTEIN NEGATIVE (NEGATIVE) URINE UROBILINOGEN 0.2 EU/dL (0.2-1.0) URINE NITRITE NEGATIVE (NEGATIVE) URINE BLOOD NEGATIVE (NEGATIVE) URINE LEUK ESTERASE NEGATIVE (NEGATIVE) URINE RBC 0-1 rbc/hpf (0-1) URINE WBC NONE SEEN wbc/hpf (0-1) URINE EPITHELIAL CELLS NONE SEEN EPI/hpf (0-5) URINE BACTERIA NONE SEEN (NONE SEEN) URINE COMMENT CULT NOT INDICATED URINE CULTURES ARE SET-UP BASED ON THE FOLLOWING CRITERIA:POSITIVE NITRITEPOSITIVE LEUKOCYTE ESTERASEGREATER THAN 10 WHITE BLOOD CELLSMODERATE (2+) OR GREATER BACTERIA CBC w Diff: (KATHRYN: 11/16/2016 15:50) ( [facility] 11/16/2016 16:02) Final results Test Result Flag Units (Reference) WHITE BLOOD COUNT 8.5 K/uL (4.5-11.5) RED BLOOD COUNT 3.96 L M/uL (4.50-5.90) HEMOGLOBIN 11.6 L gm/dL (13.5-17.5) HEMATOCRIT 34.6 L % (41.0-53.0) MEAN CELL VOLUME 87 fL (80-100) MEAN CORPUSCULAR HGB 29 pg (26-34) MEAN CORPUSCULAR HGB CONC 34 g/dL (31-37) RED CELL DISTRIBUTION WIDTH 14.5 % (11.6-14.8) PLATELET COUNT 182 K/uL (150-400) NEUTROPHIL % 69.3 % (50-75) LYMPH % 20.9 L % (25-40) MONO % 5.8 % (3-14) EOSINOPHIL % 3.7 % (0-4) BASOPHIL % 0.3 % (0-2) CMP: (KATHRYN: 11/16/2016 15:15) ( MsgRcvd 11/16/2016 16:39) Final results Test Result Flag Units (Reference) GLUCOSE 84 mg/dL (70-110) BUN 31 H mg/dL (7-18) CREATININE 1.6 H mg/dL (0.6-1.3) Estimated GFR 44.20 mL/min Estimated GFR- 53.57 mL/min Note: Persistent reduction over 3 months in eGFR<60 mL/min/1.73 m2 defines CKD. Patients with eGFR values>=60 mL/min/1.73 m2 may also have CKD if evidence ofpersistent proteinuria. Additional information may be foundat www.kidney.org. SODIUM 142 mmol/L (136-145) POTASSIUM 3.7 mmol/L (3.5-5.1) CHLORIDE 105 mmol/L (98-107) CARBON DIOXIDE 27 mmol/L (21-32) CALCIUM 8.8 mg/dL (8.5-10.1) TOTAL PROTEIN 6.2 L g/dL (6.4-8.2) ALBUMIN 3.1 L g/dL (3.3-5.0) BILIRUBIN, TOTAL 0.2 mg/dL (0.0-1.0) ALKALINE PHOSPHATASE 57 U/L (46-116) AST (SGOT) 10 L U/L (15-37) ALT (SGPT) 13 U/L (12-78) . PROGRESS AND PROCEDURES Course of Care: nurse reporting pt voided 325ml and bladder scan after showed only 24ml labs on 08/03 BUN 36 H mg/dL (7-18) CREATININE 2.2 H mg/dL (0.6-1.3) Estimated GFR 30.69 mL/min Estimated GFR- 37.19 mL/min. Patient and family counseled in person regarding the patient's stable condition, test results and diagnosis. 16:49. Differential Diagnosis: Other possible considerations: kidney failure/insufficiency, prostate ca, prostatitis, bph, uti, pyelo, kidney stone. Above considerations are based on history, physical exam, laboratory data and other information. Differential diagnosis was discussed with patient and patient's family. Disposition: Discharged home in good and improved condition (16:51). Condition: good and stable. CLINICAL IMPRESSION Urinary retention. No drug induced urinary retention or enlarged prostate. INSTRUCTIONS Warnings: GENERAL WARNINGS: Return or contact your physician immediately if your condition worsens or changes unexpectedly, if not improving as expected, or if other problems arise. Specifically return if problem worsens. Follow-up: Follow up with your doctor in about three days as needed. Call for an appointment. Summary of care provided to patient and family. Understanding of the discharge instructions verbalized by patient and family. (Electronically signed by Yadi Vicente A.R.N.P. 11/16/2016 18:42)
--- NOTE | 2016-11-16 16:51 | ED NURSING NOTES ---
Clinical Report - Nurses [facility] [address] [place] [address] 11/16/2016 14:53 [id number] Triage time 15:00 Nov 16 2016. Acuity: LEVEL 3. Chief Complaint: URINARY RETENTION. Alert. SEPSIS SCREEN: Sepsis Screen. Negative (no infection suspected/documented). RAKESH COMA SCORE: [place] Coma Scale: 15- eyes open spontaneously (4); best verbal response- oriented x 4 (5); best motor response- obeys commands (6). --15:20 Cruz Gan R.N. 15:00 11/16/16. BP: 130/64. HR: 49. RR: 18. O2 saturation: 97% on room air. Temp: 98.2 F (oral). Pain level now: 0/10. --15:20 Cruz Gan R.N. 15:21 11/16/16. HR: 58. Additional comments: HR recheck. --15:21 Cruz Gan R.N. Weight: 83.9 kg. Height/Length: 70 inches Per Patient. BMI: 26.5. --15:15 Cruz Gan R.N. Medications ALPRAZolam Oral 0.5 mg, as needed. Calcium Acetate Oral 667mg/0.25 calcitrol, , 1 daily, 2 three times per week. Claritin Oral 10 mg. Ecotrin Oral 81 mg, daily. IBX Stool Softner. Lunesta Oral (Tablet 2 mg), HS. Probiotic Daily Oral, daily. Vit b12 2000 mcg. Vitamin D Oral (Capsule 1000 unit) 1 capsule. --15:10 Cruz Gan R.N. Atenolol Oral 25 mg, daily. --15:11 Cruz Gan R.N. PriLOSEC Oral 20 mg, 2x a day. --15:11 Cruz Gan R.N. Calcitriol Oral (Capsule 0.25 mcg) 1 capsule-2 tabs every other day,one daily. --15:12 Cruz Gan R.N. Medication/allergy information source: the patient and patient's family. --15:20 Cruz Gan R.N. Allergies Flagyl. Definite Moderate (turned his mouth black) --15:10 Cruz Gan R.N. History Arrived by private vehicle. Historian: son and patient. Accompanied by son. Primary physician (Gonsalo Zurita). ( Oliguria according to son.). This started last night. He has been unable to void. 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 PAST MEDICAL HX: Immunizations: status is unknown. SOCIAL HX: Heavy tobacco smoker (cigarette)- 1 pack per day. Alcohol use; consumes one liquor daily. No drug use. No infectious disease exposure. ABUSE ASSESSMENT: No report of abuse. FALL RISK ASSESSMENT: Fall risk assessment completed. No fall risk identified. NUTRITIONAL RISK ASSESSMENT: The nutritional risk assessment revealed no deficiencies. FUNCTIONAL ASSESSMENT: Functional assessment: no impairments noted. LEARNING NEEDS ASSESSMENT: The learning needs assessment revealed no barriers. SKIN INTEGRITY ASSESSMENT: Skin integrity risk assessment completed. No skin integrity risk identified. --15:20 Cruz Gan R.N. PROBLEMS: Congestive Heart Failure. Adverse Drug Reaction. Abdominal Pain. Renal Insufficiency. Renal Failure. Heart Disease. --15:08 Cruz Gan R.N. ADDITIONAL SURGERIES: AAA repair. Angioplasty of blood vessel. Coronary Artery Bypass Graft. Stents. --15:08 Cruz Gan R.N. Interventions ID and allergy band on patient. To treatment room. --15:20 Cruz Gan R.N. PHYSICAL ASSESSMENT To room via wheelchair. GENERAL / NEURO / PSYCH: Alert. Oriented X 4. Appears in no acute distress. HEENT: Mucous membranes are pink. RESPIRATORY: Respirations not labored. CVS: Normal heart rate and rhythm. GI / : Abdomen soft. SKIN: Skin is warm and dry. --15:20 Cruz Gan R.N. NURSING PROGRESS NOTES 15:11/16/16. Reassurance given. Patient identifiers checked. Call light placed in reach. Side rails up x 1. Bed placed in lowest position. Brakes of bed on. Patient ready for evaluation- chart flagged and ED physician notified. --15:27 Cruz Gan R.N. 15:23 11/16/16. ( Pt voided 325cc/urinal). --15:29 Cruz Gan R.N. Patient ID band checked for patient name, birthdate and medical record number: patient confirmed. Instructions provided to collect clean catch urine and patient verbalized understanding. Clean catch urine collected with return of yellow-colored clear urine; odor is normal; sample sent to lab for urinalysis and culture. Specimen labeled in the presence of the patient. --15:29 Cruz Gan R.N. 15:36 11/16/16. ( Bladder scanned showed 24ml.). --15:36 Quynh Henderson 16:10 11/16/16. BP: 134/55. HR: 61. RR: 16. O2 saturation: 95% on room air. --16:11 Cruz Gan R.N. 16:55 11/16/16. ( Pt voided 200cc). --18:09 Cruz Gan R.N. DISPOSITION / DISCHARGE 17:00 11/16/16. BP: 134/55. HR: 58. RR: 16. O2 saturation: 99% on room air. Temp: 98.5 F. Pain level now: 0/10. --18:04 Cruz Gan R.N. Departure time: 1709. --18:06 Cruz Gan R.N. 17:09. Condition at departure: improved. No learning barriers present. Discharge instructions provided and reviewed with the patient. Reviewed medication(s) (contiue your usually prescribed medications). Reviewed referral to family practice for followup. Patient verbalized understanding. Written instructions provided in [place]. The patient was discharged by the nurse practitioner. He was discharged home and accompanied by family. He left the Emergency Department ambulatory and via private vehicle. Family member driving. --18:08 Cruz Gan R.N. Locked/Released at 11/16/2016 18:10 by Cruz Gan R.N.
--- NOTE | 2016-11-16 16:51 | ED ORDER SUMMARY ---
..... Patient: LILIA PABLO OrderSheet [facility] VisitID: [id number] [address] [place] [address] 81y, M Registration Date/Time: 11/16/2016 ORDER SHEET Weight: 83.9 kg Allergies: Flagyl GENERAL ORDERS: CBC w Diff Urgent (15:14 11/16/2016 HBivens A.R.N.P.) (Ack 15:15 TBergley) (16:03 TBergley) CMP Urgent (15:14 11/16/2016 HBivens A.R.N.P.) (Ack 15:15 TBergley) (16:03 TBergley) UA-Culture if indicated Urgent (15:14 11/16/2016 HBivens A.R.N.P.) (Ack 15:15 TBergley) (15:21 Grayson R.N.) Bladder Scan (15:14 11/16/2016 HBivens A.R.N.P.) (Ack 15:15 TBergley) (15:38 TBergley) MEDICATION ORDERS: IV FLUIDS: ORDER SHEET NOTES: [Electronically signed by Cruz Gan R.N. (18:10 11/16/2016)] [Electronically signed by Yadi Vicente.R.N.P. (18:41 11/16/2016)] [Electronically locked/signed by Cruz Gan R.N. (18:10 11/16/2016)]
--- NOTE | 2016-11-16 18:42 | ED MED RECONCILIATION SUMMARY ---
Patient: LILIA PABLO Medication Reconciliation Report [facility] VisitID: [id number] [address] [place] [address] 81y, M Registration Date/Time: 11/16/2016 Weight: 83.9 kg Height/Length: 70 in. BMI: 26.5 ALLERGIES: Flagyl The patient's Home Medications are listed below: THE FOLLOWING MEDICATIONS NEED TO BE RECONCILED: ALPRAZolam Oral 0.5 mg Atenolol Oral 25 mg, daily Calcitriol Oral (0.25 mcg) 1 capsule-2 tabs every other day,one daily Calcium Acetate Oral 667mg/0.25 calcitrol, 1 daily, 2 three times per week Claritin Oral 10 mg Ecotrin Oral 81 mg, daily IBX Stool Softner Lunesta Oral (2 mg), HS PriLOSEC Oral 20 mg, 2x a day Probiotic Daily Oral, daily Vit b12 2000 mcg Vitamin D Oral (1000 unit) 1 capsule The source(s) of the original Home Medication information: patient's family member patient The following Medications were given to the patient in the Emergency Department: None. The following Medications were prescribed to the patient: None.
--- NOTE | 2016-11-16 18:42 | ED MAR SUMMARY ---
..... Medication Administration Record [facility] [address] [place], [place] [id number] Patient: LILIA PABLO Visit ID: [id number] 81y, M Weight: 83.9 kg Height/Length: 70 in BMI: 26.5 ALLERGIES: Flagyl
--- NOTE | 2016-11-16 18:42 | ED DISCHARGE INSTRUCTIONS ---
Patient: LILIA PABLO General Instructions [facility] VisitID: [id number] [place] [address] 81y, M Registration Date/Time: 11/16/2016 Urinary retention. No drug induced urinary retention or enlarged prostate. INSTRUCTIONS Warnings: GENERAL WARNINGS: Return or contact your physician immediately if your condition worsens or changes unexpectedly, if not improving as expected, or if other problems arise. Specifically return if problem worsens. Follow-up: Follow up with your doctor in about three days as needed. Call for an appointment. Summary of care provided to patient and family. Understanding of the discharge instructions verbalized by patient and family. ADDITIONAL INFORMATION Urinary Retention (Male) Urinary retention means that you are unable to pass urine, even though your bladder is full. The most common cause for this in males is a blockage of the bladder outlet by an enlarged prostate gland or a bladder infection. Certain medicines can also cause this problem. This condition is treated by insertion of a catheter into the bladder to drain the urine. This provides immediate relief. The catheter may need to remain in place for a few days to prevent a recurrence. The catheter has a balloon on the tip which was inflated after insertion. This prevents the catheter from falling out. Home Care: If an antibiotic was prescribed to treat a bladder infection, be sure to take it until finished, even if you are feeling better before it is all gone. If a catheter was left in place, it is important to keep bacteria from getting into the collection bag. Do not disconnect the catheter from the collection bag. Use a leg band to secure the drainage tube, so it does not pull on the catheter. Drain the collection bag when it becomes full using the drain spout at the bottom of the bag. Do not try to pull or remove your catheter. This will injure your urethra. It must be removed by a doctor or nurse. Follow Up with your doctor as advised. If a catheter was left in place, it can usually be removed within 3-7 days. Some conditions require that the catheter remains in longer. Follow up with your doctor to determine the right time for you. Get Prompt Medical Attention if any of the following occur: Fever of 100.4F (38C) or higher, or as directed by your healthcare provider Bladder or lower abdominal pain or fullness Abdominal swelling, nausea, vomiting or back pain Blood or urine leakage around the catheter Bloody urine coming from the catheter (if a new symptom) Weakness, dizziness or fainting Confusion or change in usual level of alertness If a catheter was left in place, return if: Catheter falls out Catheter stops draining for 6 hours Bph (Enlarged Prostate) The prostate is a gland at the base of the bladder. As some men get older, the prostate may begin to increase in size. This problem is called benign prostatic hyperplasia (BPH). BPH puts pressure on the urethra. This is the tube that carries urine from the bladder to the penis. It may interfere with the flow of urine. It may also keep the bladder from emptying fully. Symptoms of BPH include trouble starting urination and feeling as though the bladder isnt emptying all the way. It also includes a weak urine stream, dribbling and leaking of urine, and frequent and urgent urination (especially at night). BPH can increase the risk of urinary infections. It can also block off urine flow completely. If this occurs, a thin tube (catheter) may be passed into the bladder to help drain urine. If symptoms are mild, no treatment may be needed at this time. If symptoms are more severe, treatment is likely needed. The goal of treatment is to improve urine flow and reduce symptoms. Treatments can include medications and procedures. Your doctor will discuss treatment options with you as needed. Home Care: Urinate as soon as you feel the urge. Do not try to hold your urine. Do not limit your fluid intake during the day. Drink 6 to 8 glasses of water or liquids a day. This prevents bacteria from building up in the bladder. Avoid drinking fluids after dinner. This may reduce urination during the night. Avoid medications that can worsen your symptoms. These include certain cold and allergy medications and antidepressants. Diuretics used for high blood pressure can also worsen symptoms. Talk to your doctor about the medications you take. Other drugs may work better for you. Prostate Cancer Screening: BPH does not increase the risk of prostate cancer. But because prostate cancer is a common cancer in men, screening is recommended for all men in general. This may help detect the cancer in its early stages when treatment is most effective. Screening often begins at age 50. Or it may be begin earlier if youre at higher risk. Factors that can increase the risk of prostate cancer include being -Citizen Of The [place] or having a father or brother who had prostate cancer. A high-fat diet may also increase the risk of prostate cancer. Follow Up with your doctor or urologist as told. To learn more, go to: National Kidney & Urologic Diseases Information Clearinghouse kidney.niddk.nih.gov, 333-0696733 Get Prompt Medical Attention if any of the following occur: Fever of 100.4F (38.0C) or higher, or as directed by your healthcare provider Unable to pass urine for 8 hours Increasing pressure or pain in your bladder (lower abdomen) Blood in the urine Increasing low back pain, not related to injury Symptoms of urinary infection (increased urge to urinate, burning when passing urine, foul-smelling urine) Urethral Stricture The urethra is the passage that carries urine out of the body. In a woman, the opening of the urethra is above the vagina. In a man, it is at the tip of the penis. Narrowing or blockage of the urethra is known as a urethral stricture. This is more common in men than in women. The blockage of the urethra is usually caused by the formation of scar tissue within the urethra due to surgery, sexually transmitted diseases, or long-term chronic catheter use. The symptoms of urethral stricture include: Slow urine flow or a urine stream that is split or a spray Urine leakage or dribbling (incontinence) Inability to empty bladder completely Pain when urinating or pain in the pelvis or lower abdomen Frequent urge to urinate Blood in the urine Urinary tract infection If your stricture is severe, a tube (catheter) may be inserted into your urethra to drain your bladder. This should provide you with temporary relief. Without treatment, strictures almost always recur. You will need to follow up with a urologist (a doctor who specializes in diseases of the urinary tract) to determine the best treatment for your condition. Home Care: If you were prescribed antibiotics for an infection, finish all the antibiotics, even if you are feeling better after only a few days. If a catheter was inserted, follow the instructions provided for catheter care. Follow Up with a urologist or as advised by our staff. Get Prompt Medical Attention if any of the following occur: Fever of 100.4F (38C) or higher, or as directed by your healthcare provider Bladder pain or fullness Abdominal pain, swelling Nausea or vomiting or back pain Weakness, dizziness or fainting You have been given the following additional information: Urinary Retention, Male BPH (Enlarged Prostate) Urethral Stricture (Electronically signed by Yadi Vicente A.R.N.P. 11/16/2016 18:42)
--- NOTE | 2016-11-16 18:42 | ED MED RECONCILIATION SUMMARY ---
Patient: LILIA PABLO Medication Reconciliation Report [facility] VisitID: [id number] [address] [place] [address] 81y, M Registration Date/Time: 11/16/2016 Weight: 83.9 kg Height/Length: 70 in. BMI: 26.5 ALLERGIES: Flagyl The patient's Home Medications are listed below: THE FOLLOWING MEDICATIONS NEED TO BE RECONCILED: ALPRAZolam Oral 0.5 mg Atenolol Oral 25 mg, daily Calcitriol Oral (0.25 mcg) 1 capsule-2 tabs every other day,one daily Calcium Acetate Oral 667mg/0.25 calcitrol, 1 daily, 2 three times per week Claritin Oral 10 mg Ecotrin Oral 81 mg, daily IBX Stool Softner Lunesta Oral (2 mg), HS PriLOSEC Oral 20 mg, 2x a day Probiotic Daily Oral, daily Vit b12 2000 mcg Vitamin D Oral (1000 unit) 1 capsule The source(s) of the original Home Medication information: patient's family member patient The following Medications were given to the patient in the Emergency Department: None. The following Medications were prescribed to the patient: None.
--- NOTE | 2016-11-16 18:42 | ED MAR SUMMARY ---
..... Medication Administration Record [facility] [address] [place], [place] [id number] Patient: LILIA PABLO Visit ID: [id number] 81y, M Weight: 83.9 kg Height/Length: 70 in BMI: 26.5 ALLERGIES: Flagyl
== END 2016-11-16 17:09 | disposition home or self-care (01) ==
LOC: ED SRH 14:53
DX: R33.9 Retention of urine, unspecified (principal); F17.210 Nicotine dependence, cigarettes, uncomplicated; I50.9 Heart failure, unspecified; N19 Unspecified kidney failure; Z95.1 Presence of aortocoronary bypass graft; Z88.1 Allergy status to other antibiotic agents
CPT/HCPCS: 90004; 90074; 90100; 95059